=== PATIENT | male | born 1970 | race Caucasian/White ===

== ENCOUNTER → 2017-12-06 16:17 | Outpatient (CLI) | payer MEDICARE ==
[2014-01-03 16:43] VITALS: BMI 25.4
[~2017-12-06 16:17] MED LIST: PROTONIX40 MG PO; ZOCOR20 MG PO
[2017-12-06 19:18] LABS: CHOL - HDL RATIO 2.6 ratio (2.3-4.9); LDL-HDL RATIO 1.3 ratio (1.5-3.5)
== END | disposition home or self-care (01) ==
LOC: D.LABREF 16:17
PROVIDERS: Internal Medicine Cardiovascular Disease
DX: E78.5 Hyperlipidemia, unspecified (principal)

== ENCOUNTER → 2017-12-17 09:10 | Outpatient (CLI) | payer MEDICARE ==
[2014-01-03 16:43] VITALS: BMI 25.4
--- NOTE | ~2017-12-17 | EC ---
PATIENT:JOSÉ ANTONIO CARRANZA DATE OF SERVICE: 12/17/17 SEX: M MEDICAL RECORD: [id number] DATE OF : [birth year] LOCATION:[facility] AGE OF PATIENT: 47 ADMISSION DATE: 12/17/17 REFERRING PHYSICIAN: INTERPRETING PHYSICIAN: TONI SMITH MD ECHOCARDIOGRAM REPORT ECHO CHARGES 4 ECHO COMPLETE CLINICAL DIAGNOSIS: CAD/HTN/IL ECHOCARDIOGRAPHIC MEASUREMENTS (adult normal given) AC root (d.<3.7cm) 3.3 cm LV Septum d (<1.2 cm> 1.3 cm Valve Excursion 1.5 cm LV Septum (systole) 1.5 cm Left Atria (s.<4.0cm> 3.0 cm LVPW d(<1.2cm) 1.3 cm RV (d.<2.3cm) 3.3 cm LVPW (sytole) 1.6 cm LV diastole(<5.6CM) 4.2 cm MV E-F(>70mm/sec) cm LV systole 2.6 cm LVOT Diameter 1.9 cm MV exc.(>10mm) 1.8 cm Est.ejection fraction (50-75%) % Pericardial Effusion N DOPPLER: LVIT cm/sec A 65.0 cm/sec E 67.0 cm/sec LA cm/sec RVSP 34 mmHg LVOT 126 cm/sec AOP1/2T m/s Asc. Ao 128 cm/sec RVOT 97 cm/sec RA cm/sec PA 120 cm/sec AV Gradient Peak 6.51 mmHg AV Mean 3.17 mmHg AV Area 2.3 cm MV Gradient Peak 3.05 mmHg MV Mean 1.32 mmHg MV Area cm COMMENTS: Real Estate Assessor: Cristiane TRACEY [employer]cible Furnace Tender: 4 Dr. Smith TAPE# PACS DATE OF SERVICE: 12/17/2017 PROCEDURE: Transthoracic echocardiogram. FINDINGS: 1. Left ventricle has left ventricular hypertrophy, ejection fraction 65% to 70%. No regional wall motion abnormalities. Inflow characteristics are consistent with diastolic dysfunction. 2. The left atrium is normal size, normal function. 3. The aortic valve is normal. ECHOCARDIOGRAM REPORT [id number] JOÉS ANTONIO CARRANZA 4. The mitral valve has trace mitral regurgitation and structurally normal. 5. The tricuspid valve has trace tricuspid regurgitation. Normal right ventricular systolic pressures. 6. No pleural effusion or pericardial effusion. 8. The right atrium is normal size, normal function. 9. The right ventricle is upper limits of normal to mildly dilated with normal function. CONCLUSION: The patient has evidence of hypertensive heart disease, but otherwise normal. TRANSINT:[id number] Voice Confirmation ID: [id number] DOCUMENT ID: [id number] TONI SMITH MD at 1522 CC: [id number] DICTATION DATE: 12/21/17 1105 FIELD SERVICE MANAGER: 12/21/17 1228 DEP CLI 12/17/17 [place] [id number] [place] [address]
== END | disposition home or self-care (01) ==
LOC: D.ECHO 09:10
DX: I25.10 Atherosclerotic heart disease of native coronary artery without angina pectoris (principal); I10 Essential (primary) hypertension; E78.5 Hyperlipidemia, unspecified

== ENCOUNTER → 2018-03-17 15:55 | Outpatient (CLI) | payer MEDICARE ==
[2014-01-03 16:43] VITALS: BMI 25.4
[2018-03-17 17:51] LABS: CHOL - HDL RATIO 3.2 ratio (2.3-4.9); LDL-HDL RATIO 1.9 ratio (1.5-3.5)
== END | disposition home or self-care (01) ==
LOC: D.LABREF 15:55
PROVIDERS: Internal Medicine Cardiovascular Disease
DX: E78.5 Hyperlipidemia, unspecified (principal)

== ENCOUNTER → 2018-04-28 15:45 | Outpatient (CLI) | payer MEDICARE ==
[2014-01-03 16:43] VITALS: BMI 25.4
[2018-04-28 16:28] LABS: CHOL - HDL RATIO 2.1 ratio (2.3-4.9)
== END | disposition home or self-care (01) ==
LOC: D.LABREF 15:45
PROVIDERS: Internal Medicine Cardiovascular Disease
DX: E78.5 Hyperlipidemia, unspecified (principal)

== ENCOUNTER → 2019-07-18 11:07 | Outpatient (CLI) | payer MEDICARE ==
[2014-01-03 16:43] VITALS: BMI 25.4
--- NOTE | 2019-07-27 08:42 | EC ---
PATIENT:JOSÉ ANTONIO CARRANZA DATE OF SERVICE: 07/18/19 SEX: M MEDICAL RECORD: [id number] DATE OF : 74 [facility] AGE OF PATIENT: 48 ADMISSION DATE: 07/18/19 REFERRING PHYSICIAN: INTERPRETING PHYSICIAN: SLAVA SIN MD ECHOCARDIOGRAM REPORT ECHO CHARGES 4 ECHO COMPLETE Date: 07/18/19 CLINICAL DIAGNOSIS: H/O HTN/CAD ECHOCARDIOGRAPHIC MEASUREMENTS (adult normal given) AC root (d.<3.7cm) 2.6 cm LV Septum d (<1.2 cm> 1.0 cm Valve Excursion 1.9 cm LV Septum (systole) 1.5 cm Left Atria (s.<4.0cm> 3.4 cm LVPW d(<1.2cm) 1.0 cm RV (d.<2.3cm) 2.2 cm LVPW (sytole) 1.5 cm LV diastole(<5.6CM) 4.6 cm MV E-F(>70mm/sec) cm LV systole 2.7 cm LVOT Diameter 1.6 cm MV exc.(>10mm) cm Est.ejection fraction (50-75%) % DOPPLER: LVIT cm/sec A 39.0 cm/sec E 69.0 cm/sec LA cm/sec RVSP 31.0 mmHg LVOT 109 cm/sec AOP1/2T m/s Asc. Ao 116 cm/sec RVOT 57.0 cm/sec RA cm/sec PA 88.0 cm/sec AV Gradient Peak 5.4 mmHg AV Mean 3.0 mmHg AV Area 1.7 cm MV Gradient Peak 3.3 mmHg MV Mean 0.97 mmHg MV Area cm COMMENTS: OP - HC Clinical Rehabilitation Aide: 1 YULI ELOISA Rehabilitation Aide/Scheduler: 3 Dr. Gonzalez TAPE# PACS Pericardial Effusion N DATE OF SERVICE: 07/18/2019 Adequate 2-D echo, color-flow and spectral Doppler, and M-mode. No LVH. LV internal dimensions are normal. Wall motion is normal. EF is greater than or equal to 55%. Aortic valve is tricuspid. No evidence of stenosis by Doppler interrogation. Left atrium is normal at 3.4 cm. Mitral valve shows no prolapse. Trace MR. Right-sided chambers are grossly normal. Trace TR. ECHOCARDIOGRAM REPORT [id number] JOSÉ ANTONIO CARRANZA TRANSINT:[id number] Voice Confirmation ID: [id number] DOCUMENT ID: [id number] SLAVA SIN MD at 0842 CC: [id number] DICTATION DATE: 07/20/19 1351 DIRECTOR MULTIPLE SCLEROSIS CENTER: 07/20/19 1427 DEP CLI 07/18/19 [place] [id number] [place] [id number]
== END | disposition home or self-care (01) ==
LOC: D.HCCARDIO 10:30
PROVIDERS: ATTEND Internal Medicine Interventional Cardiology
DX: I25.10 Atherosclerotic heart disease of native coronary artery without angina pectoris (principal)

== ENCOUNTER → 2020-07-19 11:19 | Outpatient (CLI) | payer MEDICARE ==
[2014-01-03 16:43] VITALS: BMI 25.4
== END | disposition home or self-care (01) ==
LOC: D.HCCECHO 11:19
PROVIDERS: ATTEND Internal Medicine Interventional Cardiology
DX: I10 Essential (primary) hypertension (principal)